=== PATIENT | female | born 1985 | race Hispanic/Latino ===

== ENCOUNTER 2016-10-08 00:25 | Emergency (ER) | payer OTHER ==
[2016-10-08 00:41] VITALS: BMI 39.4
[2016-10-08 00:53] VITALS: BP 114/68; PULSE 80; RESP 18; TEMP 98.5; O2SAT 98
[2016-10-08] MEDS ORDERED: Tmp-Smz 800 mg-160 mg DS Tab PO STA (00:57)
--- NOTE | 2016-10-08 00:57 | ED PDOC ---
Arrival/HPI - General Historian: Patient <Harsh Elmore A - Last Filed: 10/08/16 00:50> <Zane Kimble - Last Filed: 10/08/16 01:11> - General Chief Complaint: Abnormal Skin Integrity Time Seen by Provider: 10/08/16 00:45 - History of Present Illness Narrative History of Present Illness (Text): 10/08/16 00:50 31yo female present for evaluation of her surgical incision wound. States she [place] [facility] [place] surgeon on Sunday and was told that eveything was fine at that point with the instruction to return for any new complaint. States (Harsh Elmore A) Past Medical History - Provider Review Nursing Documentation Reviewed: Yes - Infectious Disease Hx of Infectious Diseases: None - Tetanus Immunization Tetanus Immunization: Up to Date - Past Medical History Past Medical History: No Previous - Cardiac Hx Cardiac Disorders: No - Pulmonary Hx Respiratory Disorders: No - Neurological Hx Neurological Disorder: No - HEENT Hx HEENT Disorder: No - Renal Hx Renal Disorder: No - Endocrine/Metabolic Hx Endocrine Disorders: No - Hematological/Oncological Hx Cancer: Yes (CHORIO ARCINOMA) - Integumentary Hx Dermatological Disorder: No - Musculoskeletal/Rheumatological Hx Musculoskeletal Disorders: No Hx Falls: No - Gastrointestinal Hx Gastrointestinal Disorders: No - Genitourinary/Gynecological Hx Genitourinary Disorders: Yes Other/Comment: bleeding for 2 weeks - Psychiatric Hx Psychophysiologic Disorder: No Hx Depression: No Hx Substance Use: No - Past Surgical History Past Surgical History: No Previous - Surgical History Hx Tubal Ligation: Yes Other/Comment: TOP - Anesthesia Hx Anesthesia: Yes Hx Anesthesia Reactions: No Hx Malignant Hyperthermia: No - Suicidal Assessment Feels Threatened In Home Enviroment: No <Harsh Elmore A - Last Filed: 10/08/16 00:50> Family/Social History - Physician Review Nursing Documentation Reviewed: Yes Family/Social History: Unknown Family HX Smoking Status: Never Smoked Hx Alcohol Use: No Hx Substance Use: No <Harsh Elmore A - Last Filed: 10/08/16 00:50> Allergies/Home Meds <Harsh Elmore A - Last Filed: 10/08/16 00:50> <Zane Kimble - Last Filed: 10/08/16 01:11> Allergies/Adverse Reactions: Allergies No Known Allergies Allergy (Verified 02/07/15 20:53) Review of Systems - Physician Review All systems were reviewed & negative as marked: Yes - Review of Systems Constitutional: Normal Eyes: Normal ENT: Normal Respiratory: Normal Cardiovascular: Normal Gastrointestinal: Normal Genitourinary Female: Normal Musculoskeletal: Normal Skin: Other (Wound check) Neurological: Normal Endocrine: Normal Hemo/Lymphatic: Normal Psychiatric: Normal <Harsh Elmore A - Last Filed: 10/08/16 00:50> Physical Exam Vital Signs Reviewed: Yes Temperature: Afebrile Blood Pressure: Normal Pulse: Regular Respiratory Rate: Normal Appearance: Positive for: Well-Appearing, Non-Toxic, Comfortable Pain Distress: None Mental Status: Positive for: Alert and Oriented X 3 - Systems Exam Head: Present: Atraumatic, Normocephalic Pupils: Present: PERRL Extroacular Muscles: Present: EOMI Conjunctiva: Present: Normal Mouth: Present: Moist Mucous Membranes Neck: Present: Normal Range of Motion Respiratory/Chest: Present: Clear to Auscultation, Good Air Exchange. No: Respiratory Distress, Accessory Muscle Use Cardiovascular: Present: Regular Rate and Rhythm, Normal S1, S2. No: Murmurs Abdomen: Present: Normal Bowel Sounds. No: Tenderness, Distention, Peritoneal Signs Back: Present: Normal Inspection Upper Extremity: Present: Normal Inspection. No: Cyanosis, Edema Lower Extremity: Present: Normal Inspection. No: Edema Neurological: Present: GCS=15, CN II-XII Intact, Speech Normal Skin: Present: Warm, Dry, Normal Color, Other (Surgical wound noted on LLQ abdomen with mild surrounding erythema. No discharge noted. No warmth to touch. Tender to palpation.). No: Rashes Psychiatric: Present: Alert, Oriented x 3, Normal Insight, Normal Concentration <Harsh Elmore A - Last Filed: 10/08/16 00:50> Medical Decision Making <Harsh Elmore - Last Filed: 10/08/16 00:50> <Zane Kimble - Last Filed: 10/08/16 01:11> ED Course and Treatment: 10/08/16 01:05 PT in ED for stated history. She was afebrile and hemodynamically stable in ED. Mild erythema was noted surrounding the surgical site. She was placed on Bactrim Ds and keflex. Advised to f/u with the surgeon. TRT ED for any new or worsening symptoms. (Harsh Elmore) - Medication Orders Current Medication Orders: Discontinued Medications Cephalexin Monohydrate (Keflex) 500 mg PO STAT STA PRN Reason: Protocol Stop: 10/08/16 00:59 Trimethoprim/Sulfamethoxazole (Bactrim Ds Tab) 1 tab PO STAT STA PRN Reason: Protocol Stop: 10/08/16 00:58 - PA / OPERATIONS ADMINISTRATIVE ASSISTANT / Resident Statement VICTORIANO has reviewed & agrees with the documentation as recorded. VICTORIANO has examined the patient and agrees with the treatment plan. <Zane Kimble - Last Filed: 10/08/16 01:11> Disposition/Present on Arrival - Present on Arrival Any Indicators Present on Arrival: No History of DVT/PE: No History of Uncontrolled Diabetes: No Urinary Catheter: No History of Decub. Ulcer: No History Surgical Site Infection Following: None - Disposition Have Diagnosis and Disposition been Completed?: Yes Disposition Time: 01:05 Patient Plan: Discharge <Harsh Elmore - Last Filed: 10/08/16 00:50> <Zane Kimble - Last Filed: 10/08/16 01:11> - Disposition Diagnosis: Wound infection Disposition: HOME/ ROUTINE Condition: STABLE Discharge Instructions (ExitCare): Surgical Site Infections (ED) Additional Instructions: Follow up with your surgeon Return to ED for any or worsening Prescriptions: Cephalexin [Keflex] 500 mg PO QID #28 capsule Sulfamethoxazole/Trimethoprim [Bactrim DS 800 mg-160 mg] 1 tab PO BID #14 tab Referrals: [facility] at [facility] [place] [Outside] - Follow up with primary
== END 2016-10-08 01:19 | disposition home or self-care (01) ==
LOC: ED 00:25
DX: T81.4XXA Infection following a procedure, initial encounter (principal); Y83.8 Other surgical procedures as the cause of abnormal reaction of the patient, or of later complication, without mention of misadventure at the time of the procedure; Y92.89 Other specified places as the place of occurrence of the external cause